=== PATIENT | female | born 1975 | race Native Hawaiian/Other Pacific Islander ===

== ENCOUNTER 2017-09-15 06:35 | Emergency (ER) | payer BC ==
[~2017-09-15] VITALS: Ht 157.5 cm; Wt 62.1 kg
--- NOTE | 2017-09-15 06:59 | NUR ---
Patient discharged to home in stable conditon. Written and verbal after care instructions given. Patient verbalizes understanding of instructions.
== END 2017-09-15 07:00 | disposition home or self-care (01) ==
LOC: ER 06:47
DX: J40 Bronchitis, not specified as acute or chronic (principal)
CPT/HCPCS: A4663

== ENCOUNTER 2018-03-15 04:33 | Outpatient (CLI) | payer BC, OTHER ==
[2018-03-15 06:38] LABS: BASOPHILS # (AUTO) 0.1 K/uL (0.0-8.0); BASOPHILS % (AUTO) 1.2 % (0.0-2.0); EOSINOPHILS # (AUTO) 0.3 K/uL (0.0-0.7); EOSINOPHILS % (AUTO) 3.1 % (0.0-7.0); HEMOGLOBIN 12.6 g/dL (10.9-14.3); LYMPHOCYTES # (AUTO) 2.1 K/uL (20.0-40.0); LYMPHOCYTES % (AUTO) 22.4 % (20.5-51.5); MEAN CORPUSCULAR HEMOGLOBIN 28.9 uug (24.7-32.8); MEAN CORPUSCULAR HGB CONC 33 g/dL (32.3-35.6); MEAN CORPUSCULAR VOLUME 87.4 fL (75.5-95.3); MONOCYTES % (AUTO) 10.6 % (0.0-11.0); NEUTROPHILS # (AUTO) 5.8 K/uL (1.8-8.9); NEUTROPHILS % (AUTO) 62.7 % (38.5-71.5); PLATELET COUNT (AUTO) 333 K/uL (179-408); RED BLOOD CELL COUNT(AUTO) 4.35 MIL/uL (3.63-4.92); WHITE BLOOD COUNT (AUTO) 9.3 K/uL (3.8-11.8)
[2018-03-15 06:40] LABS: *BILIRUBIN,URIN NEGATIVE (NEGATIVE); *BLOOD, URINE Trace-intact (NEGATIVE); *CLARITY,URINE CLEAR (CLEAR); *COLOR,URINE YELLOW (YELLOW); *KETONES,URINE TRACE (NEGATIVE); *PROTEIN,URINE NEGATIVE (NEGATIVE); *UROBILINOGEN,URINE 0.2 E.U./dl (NORMAL); LEUKOCYTE ESTERASE ,URINE TRACE (NEGATIVE); NITRITE, URINE NEGATIVE (NEGATIVE); UGLUCOSE NEGATIVE (NEGATIVE)
[2018-03-15 06:51] LABS: BACTERIA,URINE NONE SEEN /HPF (NONE SEEN); SQUAMOUS EPITHELIAL CELL,UR MODERATE /HPF (NONE SEEN)
[2018-03-15 06:52] LABS: MUCUS,URINE FEW /LPF (0-FEW)
[2018-03-15 06:55] LABS: BILIRUBIN,TOTAL 0.4 mg/dL (0.2-1.0); CREATININE 0.6 mg/dL (0.6-1.3); POTASSIUM 3.3 mmol/L (3.5-5.1)
[2018-03-15 07:00] LABS: THYROID STIMULATING HORMONE 2.035 mIU/mL (0.358-3.740)
== END 2018-03-15 23:59 | disposition home or self-care (01) ==
LOC: LAB 04:33
PROVIDERS: ATTEND Legal Medicine
DX: Z00.00 Encounter for general adult medical examination without abnormal findings (principal)
CPT/HCPCS: 70030-TC; 83550; 84443; 85025

== ENCOUNTER 2018-11-01 09:42 | Emergency (ER) | payer BC, OTHER ==
[~2018-11-01] VITALS: Ht 157.5 cm; Wt 54.4 kg
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
--- NOTE | 2018-11-01 09:52 | NUR ---
BETTY LLOYD AT BEDSIDE FOR MSE.
[2018-11-01] MEDS ORDERED: IBUPROFEN 600 MG TABLET PO ONE (10:00)
--- NOTE | 2018-11-01 10:06 | NUR ---
Patient discharged to home in stable conditon. Written and verbal after care instructions given. Patient verbalizes understanding of instructions. ALL BELONGINGS W/ PT. PT SELF-AMBULATED W/O DIFFICULTY.
[2018-11-01 10:07] VITALS: BP 172/98
[2018-11-01] MEDS ORDERED: IBUPROFEN 600 MG TABLET ONE (10:08)
== END 2018-11-01 10:09 | disposition home or self-care (01) ==
LOC: ER 09:42
DX: S16.1XXA Strain of muscle, fascia and tendon at neck level, initial encounter (principal); S70.11XA Contusion of right thigh, initial encounter; S30.1XXA Contusion of abdominal wall, initial encounter; V43.52XA Car driver injured in collision with other type car in traffic accident, initial encounter; Y93.89 Activity, other specified; Y92.410 Unspecified street and highway as the place of occurrence of the external cause; Y99.8 Other external cause status
CPT/HCPCS: A4663

== ENCOUNTER 2019-01-11 07:47 | Emergency (ER) | payer BC, OTHER ==
[~2019-01-11] VITALS: Ht 157.5 cm; Wt 60.3 kg
--- NOTE | 2019-01-11 08:02 | NUR ---
Dr Conner is at bedside doing his MSE.
--- NOTE | 2019-01-11 08:53 | NUR ---
Patient discharged to home in stable conditon. Written and verbal after care instructions given to patient. Patient verbalizes understanding of instructions.
== END 2019-01-11 09:00 | disposition home or self-care (01) ==
LOC: ER 07:47
DX: J40 Bronchitis, not specified as acute or chronic (principal)
CPT/HCPCS: 71045; A4663

== ENCOUNTER 2019-04-11 07:31 | Outpatient (CLI) | payer BC, OTHER ==
[2019-04-11 08:59] LABS: BASOPHILS # (AUTO) 0.1 K/uL (0.0-8.0); EOSINOPHILS # (AUTO) 0.3 K/uL (0.0-0.7); EOSINOPHILS % (AUTO) 3.8 % (0.0-7.0); HEMATOCRIT 36.7 % (31.2-41.9); HEMOGLOBIN 11.9 g/dL (10.9-14.3); LYMPHOCYTES # (AUTO) 2.2 K/uL (20.0-40.0); LYMPHOCYTES % (AUTO) 28.9 % (20.5-51.5); MEAN CORPUSCULAR HEMOGLOBIN 27.1 uug (24.7-32.8); MEAN CORPUSCULAR HGB CONC 32 g/dL (32.3-35.6); MEAN CORPUSCULAR VOLUME 83.7 fL (75.5-95.3); MONOCYTES # (AUTO) 0.7 K/uL (2.0-10.0); MONOCYTES % (AUTO) 9.6 % (0.0-11.0); NEUTROPHILS # (AUTO) 4.1 K/uL (1.8-8.9); NEUTROPHILS % (AUTO) 55.7 % (38.5-71.5); PLATELET COUNT (AUTO) 448 K/uL (179-408); RED BLOOD CELL COUNT(AUTO) 4.39 MIL/uL (3.63-4.92); WHITE BLOOD COUNT (AUTO) 7.4 K/uL (3.8-11.8)
[2019-04-11 09:01] LABS: CARBON DIOXIDE 28 mmol/L (21-32); CHLORIDE 99 mmol/L (98-107); CREATININE 0.6 mg/dL (0.6-1.3); GLUCOSE 97 mg/dL (74-106); POTASSIUM 3.5 mmol/L (3.5-5.1); UREA NITROGEN, BLOOD 10 mg/dL (7-18)
[2019-04-11 09:10] LABS: *BILIRUBIN,URIN NEGATIVE (NEGATIVE); *BLOOD, URINE NEGATIVE (NEGATIVE); *CLARITY,URINE CLOUDY (CLEAR); *COLOR,URINE YELLOW (YELLOW); *KETONES,URINE NEGATIVE (NEGATIVE); *UROBILINOGEN,URINE 0.2 E.U./dl (NORMAL); LEUKOCYTE ESTERASE ,URINE 1+ (NEGATIVE); NITRITE, URINE NEGATIVE (NEGATIVE); UGLUCOSE NEGATIVE (NEGATIVE)
[2019-04-11 09:43] LABS: BACTERIA,URINE FEW /HPF (NONE SEEN); RBC,URINE 0-3 /HPF (0-3); SQUAMOUS EPITHELIAL CELL,UR FEW /HPF (NONE SEEN); WBC,URINE 0-3 /HPF (0-3)
== END 2019-04-11 23:59 | disposition home or self-care (01) ==
LOC: LAB 07:31
PROVIDERS: ATTEND Obstetrics & Gynecology
DX: Z01.818 Encounter for other preprocedural examination (principal)
CPT/HCPCS: 36415; 85025; 85730; 86900; 86901; 87086

== ENCOUNTER 2019-08-21 07:30 | Outpatient (CLI) | payer BC, OTHER ==
[2019-08-23 02:06] LABS: NEISSERIA GONORRHOEAE NAA Negative (Negative)
== END 2019-08-21 23:59 | disposition home or self-care (01) ==
LOC: LAB 07:30
PROVIDERS: ATTEND Legal Medicine
DX: Z11.3 Encounter for screening for infections with a predominantly sexual mode of transmission (principal)
CPT/HCPCS: 87491; 87591

== ENCOUNTER 2020-08-26 06:00 | Emergency (ER) | payer BC, OTHER ==
[~2020-08-26] VITALS: Ht 157.5 cm; Wt 59.0 kg
[2020-08-26] MEDS ORDERED: BENZ-13 PO (06:23)
[2020-08-26] MEDS ORDERED: AZIT500T2 PO (06:23)
[2020-08-26 06:27] VITALS: BP 118/78
--- NOTE | 2020-08-26 06:27 | NUR ---
Patient discharged to home in stable condition. Written and verbal after care instructions given. Patient verbalizes understanding of instructions. Stressed follow up or return to ER for worsening s/s.
== END 2020-08-26 06:28 | disposition home or self-care (01) ==
LOC: ER 06:03
DX: J20.9 Acute bronchitis, unspecified (principal); Z86.16 Personal history of COVID-19
CPT/HCPCS: A4663

== ENCOUNTER 2020-11-11 07:32 | Outpatient (CLI) | payer BC, OTHER ==
[~2020-11-11 07:32] MED LIST: AZIT500T2 PO; BENZ-13 PO
[2020-11-11 08:03] LABS: *BILIRUBIN,URIN NEGATIVE (NEGATIVE); *BLOOD, URINE NEGATIVE (NEGATIVE); *CLARITY,URINE Other (CLEAR); *COLOR,URINE YELLOW (YELLOW); *KETONES,URINE NEGATIVE (NEGATIVE); *UROBILINOGEN,URINE 0.2 E.U./dl (NORMAL); LEUKOCYTE ESTERASE ,URINE NEGATIVE (NEGATIVE); NITRITE, URINE NEGATIVE (NEGATIVE); UGLUCOSE NEGATIVE (NEGATIVE)
[2020-11-11 08:04] LABS: BASOPHILS # (AUTO) 0.2 K/uL (0.0-8.0); BASOPHILS % (AUTO) 1.1 % (0.0-2.0); CARBON DIOXIDE 24 mmol/L (21-32); CHLORIDE 102 mmol/L (98-107); CREATININE 0.6 mg/dL (0.6-1.3); EOSINOPHILS # (AUTO) 0.5 K/uL (0.0-0.7); EOSINOPHILS % (AUTO) 3.7 % (0.0-7.0); GLUCOSE 94 mg/dL (74-106); HEMATOCRIT 29.5 % (31.2-41.9); HEMOGLOBIN 9.5 g/dL (10.9-14.3); LYMPHOCYTES # (AUTO) 2.2 K/uL (20.0-40.0); LYMPHOCYTES % (AUTO) 15.7 % (20.5-51.5); MEAN CORPUSCULAR HEMOGLOBIN 22.7 uug (24.7-32.8); MEAN CORPUSCULAR HGB CONC 32 g/dL (32.3-35.6); MEAN CORPUSCULAR VOLUME 70.8 fL (75.5-95.3); MONOCYTES # (AUTO) 0.8 K/uL (2.0-10.0); MONOCYTES % (AUTO) 5.7 % (0.0-11.0); NEUTROPHILS # (AUTO) 10.4 K/uL (1.8-8.9); NEUTROPHILS % (AUTO) 73.8 % (38.5-71.5); PLATELET COUNT (AUTO) 489 K/uL (179-408); POTASSIUM 3.5 mmol/L (3.5-5.1); RED BLOOD CELL COUNT(AUTO) 4.16 MIL/uL (3.63-4.92); UREA NITROGEN, BLOOD 15 mg/dL (7-18); WHITE BLOOD COUNT (AUTO) 14.1 K/uL (3.8-11.8)
[2020-11-11 14:04] LABS: BACTERIA,URINE MANY /HPF (NONE SEEN); RBC,URINE NONE SEEN /HPF (0-3)
[2020-11-11 14:06] LABS: URINE AMORPHOUS URATE MANY /HPF
[2020-11-11 15:45] LABS: EOSINOPHILS % (MANUAL) 4 % (0-8); LYMPHOCYTES % (MANUAL) 15 % (20-40); MONOCYTES % (MANUAL) 6 % (2-10); NEUTROPHILS % (MANUAL) 75 % (42-75)
== END 2020-11-11 23:59 | disposition home or self-care (01) ==
LOC: LAB 07:32
PROVIDERS: ATTEND Obstetrics & Gynecology
DX: Z01.818 Encounter for other preprocedural examination (principal)
CPT/HCPCS: 36415; 70030-TC; 85025; 85730; 87086

== ENCOUNTER 2020-11-17 06:29 | Outpatient (CLI) | payer BC, OTHER ==
[2020-11-18] MEDS ORDERED: CEFAZOLIN 50 ML IV ONE (06:56)
== END 2020-11-17 23:59 | disposition home or self-care (01) ==
LOC: LAB 06:29
PROVIDERS: ATTEND Obstetrics & Gynecology
DX: Z01.812 Encounter for preprocedural laboratory examination (principal); Z20.822 Contact with and (suspected) exposure to COVID-19
CPT/HCPCS: J0690

== ENCOUNTER 2020-11-18 05:56 | Inpatient (IN) | payer BC, OTHER ==
[~2020-11-18] VITALS: Ht 157.5 cm; Wt 61.7 kg
[2020-11-18 06:38] LABS: *URINE HCG, QUAL NEGATIVE (NEGATIVE)
[2020-11-18] MEDS ORDERED: FENTANYL CITRATE 100 MCG/2 ML AMPUL ONE ×2 (07:37→10:44)
[2020-11-18] MEDS ORDERED: MIDAZOLAM HCL 2 MG/2 ML VIAL ONE (07:38)
[2020-11-18] MEDS ORDERED: ROCURONIUM BROMIDE 50 MG/5 ML VIAL ONE (07:38)
[2020-11-18] MEDS ORDERED: LIDOCAINE 5% OINT 35.44 GM TUBE ONE (08:34)
[2020-11-18] MEDS ORDERED: BUPIVACAINE/EPI PF 0.5% 10 ML VIAL ONE (08:39)
[2020-11-18] MEDS ORDERED: ONDANSETRON 4 MG/2 ML VIAL ONE ×3 (09:56→17:52)
[2020-11-18] MEDS ORDERED: HYDROMORPHONE 1 MG/1 ML DISP.SYRIN ONE (09:57)
[2020-11-18] MEDS ORDERED: LIDOCAINE 5% OINT 35.44 GM TUBE TP PRN (11:15)
--- NOTE | 2020-11-18 11:30 | NUR ---
ADMITTED FROM RECOVERY ROOM A 45 YO FEMALE SP WENDIE, DELMY AND BILATERAL LABIAL REPAIR UNDER DR SALAZAR AWAKE ALERT AND VERBALLY RESPONSIVE BUT STILL FEELING DIZZY AND NAUSEATED. POST-OP VS TAKEN. CONTINUE WITH OBSERVATION
[2020-11-18 11:45] VITALS: BP 142/79
[2020-11-18 12:00] VITALS: BP 151/88
[2020-11-18] MEDS: HYDROMORPHONE 1 MG/1 ML DISP.SYRIN IV PRN ×5 (12:07→22:40)
[2020-11-18 12:30] VITALS: BP 152/87
[2020-11-18] MEDS: IV LACTATED RINGERS SOLUTION 1,000 ML IV PRN ×2 (13:51→23:32)
[2020-11-18] MEDS ORDERED: HYDROMORPHONE 2 MG/1 ML DISP.SYRIN IV PRN (14:15)
[2020-11-18] MEDS ORDERED: PROCHLORPERAZINE EDISYLATE 10 MG/2 ML VIAL IV PRN (14:15)
[2020-11-18] MEDS: METOCLOPRAMIDE HCL 10 MG/2 ML VIAL IV PRN ×2 (14:20→20:50)
[2020-11-18] MEDS: ONDANSETRON INJ 8 MG in IV NORMAL SALINE 50 ML IV PRN (18:23)
--- NOTE | 2020-11-18 18:29 | NUR ---
CONTINUE WITH PAIN MANAGEMENT FOR POST-OP WENDIE. STILL WITH ON AND OF N/V MEDICATED WITH PRN MEDS WITH TEMPORARY RELIEF.
[2020-11-18 20:22] VITALS: BP 131/78
--- NOTE | 2020-11-18 22:10 | NUR ---
Patient in bed alert x4 vomited x2 .Reglan IVP given. Iv on left FA patent and intact with IVF running well.F/ c in place draining well with clear yellow output. Call light with in reach. Will continue to monitor.
[2020-11-19] MEDS: ONDANSETRON INJ 8 MG in IV NORMAL SALINE 50 ML IV PRN ×3 (00:01→12:58)
[2020-11-19] MEDS: METOCLOPRAMIDE HCL 10 MG/2 ML VIAL IV PRN ×2 (03:20→20:21)
[2020-11-19] MEDS: HYDROMORPHONE 1 MG/1 ML DISP.SYRIN IV PRN ×5 (03:33→22:06)
[2020-11-19 04:45] VITALS: BP 132/72
[2020-11-19 06:32] LABS: HEMATOCRIT 26.5 % (31.2-41.9); MEAN CORPUSCULAR HEMOGLOBIN 22.6 uug (24.7-32.8); MEAN CORPUSCULAR VOLUME 71.3 fL (75.5-95.3); PLATELET COUNT (AUTO) 393 K/uL (179-408)
[2020-11-19] MEDS: IV LACTATED RINGERS SOLUTION 1,000 ML IV PRN (08:14)
[2020-11-19] MEDS ORDERED: VECURONIUM BROMIDE 10 MG VIAL IV ONE (09:28)
[2020-11-19] MEDS ORDERED: DEXAMETHASONE SOD PHOSPHATE 4 MG INJ IV ONE (09:28)
[2020-11-19] MEDS ORDERED: NEOSTIGMINE METHYLSULFATE 10 MG/10 ML VIAL IM ONE (09:28)
[2020-11-19] MEDS ORDERED: CEFAZOLIN 1 G VIAL IM ONE (09:28)
[2020-11-19] MEDS ORDERED: GLYCOPYRROLATE 0.2 MG/ML VIAL IJ ONE (09:28)
[2020-11-19] MEDS ORDERED: KETOROLAC TROMETHAMINE 30 MG INJ IM ONE (09:28)
[2020-11-19] MEDS ORDERED: ONDANSETRON 4 MG/2 ML VIAL IV ONE (09:28)
[2020-11-19] MEDS ORDERED: SEVOFLURANE 250 ML BOTTLE IH ONE (09:28)
[2020-11-19] MEDS ORDERED: LIDOCAINE-MPF 2% 5 ML VIAL IJ ONE (09:28)
[2020-11-19] MEDS ORDERED: METOCLOPRAMIDE HCL 10 MG/2 ML VIAL IV ONE (09:28)
[2020-11-19] MEDS ORDERED: PROPOFOL 200 MG/20 ML BOTTLE IV ONE (09:28)
--- NOTE | 2020-11-19 10:15 | NUR ---
Received report from JAZMYN Rosales.
--- NOTE | 2020-11-19 12:03 | NUR ---
Spoke to Dr. Pro received orders maria del rosario DSS 100mg BID, relayed wbc 17 and said she'll see patient this afternoon. ORder noted and carried out.
[2020-11-19] MEDS: DOCUSATE SODIUM 100 MG CAPSULE PO SCH ×2 (12:26→21:51)
[2020-11-19 12:59] LABS: LYMPHOCYTES % (MANUAL) 5 % (20-40); MONOCYTES % (MANUAL) 12 % (2-10); NEUTROPHILS % (MANUAL) 83 % (42-75)
[2020-11-19 13:00] VITALS: BP 98/63
--- NOTE | 2020-11-19 15:45 | NUR ---
Removed argueta catheter. Patient tolerated procedure. Denies pain.
[2020-11-19 16:00] VITALS: BP 140/78
--- NOTE | 2020-11-19 16:51 | NUR ---
Left voicemail for Dr. Pro re Roxicodone dose. Waiting for call back.
--- NOTE | 2020-11-19 17:10 | NUR ---
Dr. Pro called back with new orders roxicodone 5mg q4hr prn and decrease Zofran to 4mg prn, noted and carried out.
[2020-11-19] MEDS ORDERED: ONDANSETRON 4 MG/2 ML VIAL IV PRN (17:15)
--- NOTE | 2020-11-19 18:51 | NUR ---
Patient resting in no acute distress. Voided after argueta catheter was removed. Ambulated today. Pain relived by medication. IV intact. Patient is comfortable. Needs attended.
--- NOTE | 2020-11-19 19:26 | NUR ---
Patient prefers to keep Dilaudid for now just in case she doesn't tolerate the oxycodone. Pharmacy aware. Endorsed.
--- NOTE | 2020-11-19 19:30 | NUR ---
RECEIVED PT AWAKE, ALERT AND ORIENTEDX4. VISITOR AT BEDSIDE. PT IN NO ACUTE DISTRESS. IV INTACT. SAFETY AND COMFORT PROVIDED. WILL CONTINUE TO MONITOR.
[2020-11-19 20:00] VITALS: BP 155/92
[2020-11-19] MEDS: OXYCODONE HCL 5 MG TABLET PO PRN (20:21)
[2020-11-19] MEDS ORDERED: DOCUSATE SODIUM 100 MG CAPSULE PO SCH (21:00)
[2020-11-20] MEDS: HYDROMORPHONE 1 MG/1 ML DISP.SYRIN IV PRN (03:55)
[2020-11-20 04:00] VITALS: BP 132/70
--- NOTE | 2020-11-20 06:33 | NUR ---
PT SLEPT INTERMITTENTLY. PT IN NO ACUTE DISTRESS. IV INTACT. PRESCRIBED MEDICATION GIVEN AND PT TOLERATED IT WELL.PT WAS GIVEN OXYIR PRN FOR 7/10 PAIN SCALE OF HER LOWER ABDOMEN AT 2020H AND AT REGLAN 10MG PRN GIVEN FOR NAUSEA . AT 2205H AND 354H DIALUDID 1MG PRN GIVEN FOR PAIN. PT TOLERATED IT WELL. SAFETY AND COMFORT PROVIDED. ALL NEEDS ARE MET.WILL ENDORSE TO INCOMING NURSE FOR CONTINUITY OF CARE.
[2020-11-20] MEDS: OXYCODONE HCL 5 MG TABLET PO PRN ×3 (06:40→19:11)
--- NOTE | 2020-11-20 06:41 | NUR ---
AT 0640H OXYIR PRN GIVEN FOR PAIN. PT TOLERATED IT WELL. WILL ENDORSE TO INCOMING NURSE.
[2020-11-20] MEDS: DOCUSATE SODIUM 100 MG CAPSULE PO SCH ×2 (08:22→22:07)
[2020-11-20 10:47] VITALS: BP 130/70
[2020-11-20] MEDS ORDERED: ACETAMINOPHEN 325 MG TABLET PO ONE (12:30)
[2020-11-20 15:07] VITALS: BP 132/77
[2020-11-20] MEDS ORDERED: HYDROMORPHONE HCL 2 MG TABLET PO PRN (19:00)
--- NOTE | 2020-11-20 19:00 | NUR ---
Spoke to Dr. Pro, update given to MD and per MD may remove surgical dressing, keep surgical incision site clean, dry and open to air. Dr. Pro also ordered Tylenol ES 500mg PO Q 4hrs PRN, discontinue IV Dilaudid and shift to Dilaudid 1mg PO Q4hrs.
[2020-11-20] MEDS: ACETAMINOPHEN ES 500 MG TABLET PO PRN (19:11)
--- NOTE | 2020-11-20 20:00 | NUR ---
AWAKE ALERT IN NO DISTRESS, NO COMPLAINTS MADE.RESTING COMFORTABLY
[2020-11-20 21:37] VITALS: BP 137/84
--- NOTE | 2020-11-21 05:12 | NUR ---
slept at intervals.vital sighs stable.
[2020-11-21 06:32] VITALS: BP 111/75
[2020-11-21] MEDS: DOCUSATE SODIUM 100 MG CAPSULE PO SCH (09:10)
[2020-11-21] MEDS: OXYCODONE HCL 5 MG TABLET PO PRN (11:25)
[2020-11-21] MEDS: ACETAMINOPHEN ES 500 MG TABLET PO PRN (11:25)
[2020-11-21 12:00] VITALS: BP 117/72
--- NOTE | 2020-11-21 12:00 | NUR ---
AMBULATING ONIEL. ANXIOUS TO BE DISCHARGED. MED. PO FOR PAIN WITH GOOD EFFECT AFTER 45 MINS.
[2020-11-21] MEDS ORDERED: ONDA4TAB11 PO (13:21)
[2020-11-21] MEDS ORDERED: OXYC5TAB3 PO (13:21)
[2020-11-21] MEDS ORDERED: CEPH500C2 PO (13:21)
--- NOTE | 2020-11-21 15:00 | NUR ---
HEP. MAHESH CARABALLO. ANGIOCATH REMOVED INTACT. PREPARED FOR DISCHARGE. Zach GARCIA SUPERVISOR STAVE FINISHING SPOKE WITH PATIENT.
--- NOTE | 2020-11-21 15:35 | NUR ---
DISCHARGED VIA W/C, ACCOMPANIED BY NURSES TO MOTHER IN AUTO. NO DISTRESS NOTED.
== END 2020-11-21 15:35 | disposition home or self-care (01) | DRG 742 ==
LOC: DS 05:56 → MEDSURG3 11:56
PROVIDERS: ADMIT Hospitalist; ATTEND Hospitalist
PROC: 0UT90ZZ Resection of Uterus, Open Approach (ICD-10-PCS; principal; 2020-11-18)
PROC: 0UT20ZZ Resection of Bilateral Ovaries, Open Approach (ICD-10-PCS; 2020-11-18)
PROC: 0HB9XZZ Excision of Perineum Skin, External Approach (ICD-10-PCS; 2020-11-18)
DX: R87.613 High grade squamous intraepithelial lesion on cytologic smear of cervix (HGSIL) (principal); D62 Acute posthemorrhagic anemia; D72.829 Elevated white blood cell count, unspecified; Z98.51 Tubal ligation status
CPT/HCPCS: 36415; 70030-TC; 84703; 85025; 86850; 86900; 86901; A4649; A4663; A9150; G0378; J0690; J1100; J1170; J1885; J2250; J2405; J2765; J3010; J3490; J7120

== ENCOUNTER 2021-06-23 09:00 | Emergency (ER) | payer BC, OTHER ==
[~2021-06-23] VITALS: Ht 157.5 cm; Wt 63.5 kg
[~2021-06-23 09:00] MED LIST changes: +CEPH500C2 PO; +ONDA4TAB11 PO
[2021-06-23] MEDS ORDERED: PANTOPRAZOLE SODIUM 40 MG VIAL IV ONE (09:15)
[2021-06-23] MEDS ORDERED: IV NORMAL SALINE 1000 ML BAG IV ONE (09:15)
[2021-06-23] MEDS ORDERED: LIDOCAINE VISCUS 2% 15 ML UDC MM ONE (09:15)
[2021-06-23] MEDS ORDERED: MAG HYDROX/AL HYDROX/SIMETH 30 ML LIQUID UDC PO ONE (09:15)
[2021-06-23] MEDS ORDERED: ONDANSETRON 4 MG/2 ML VIAL IV ONE (09:15)
[2021-06-23 09:27] LABS: HEMATOCRIT 40.8 % (31.2-41.9); MEAN CORPUSCULAR HEMOGLOBIN 28.6 uug (24.7-32.8); MEAN CORPUSCULAR VOLUME 84.7 fL (75.5-95.3); PLATELET COUNT (AUTO) 382 K/uL (179-408)
[2021-06-23] MEDS ORDERED: KETOROLAC TROMETHAMINE 15 MG INJ IVP ONE (09:30)
[2021-06-23 09:37] LABS: CREATININE 0.7 mg/dL (0.6-1.3)
[2021-06-23 09:44] LABS: BILIRUBIN,DIRECT 0.1 mg/dL (0.0-0.2); BILIRUBIN,TOTAL 0.4 mg/dL (0.2-1.0); TOTAL PROTEIN, SERUM 8.6 g/dL (6.4-8.2)
[2021-06-23] MEDS ORDERED: KETOROLAC TROMETHAMINE 15 MG INJ ONE (09:54)
[2021-06-23] MEDS ORDERED: ONDANSETRON 4 MG/2 ML VIAL ONE (09:54)
[2021-06-23] MEDS ORDERED: PANTOPRAZOLE SODIUM 40 MG VIAL ONE (09:54)
[2021-06-23] MEDS ORDERED: MAG HYDROX/AL HYDROX/SIMETH 30 ML LIQUID UDC ONE (09:55)
--- NOTE | 2021-06-23 10:02 | NUR ---
PT IS IN ROOM #2B. DR HERNANDEZ EVALUATED THE PT.
[2021-06-23 10:11] LABS: *URINE HCG, QUAL NEG (NEGATIVE)
[2021-06-23] MEDS ORDERED: ONDA4TAB5 PO (10:53)
[2021-06-23] MEDS ORDERED: IBUP-1955 PO (10:53)
[2021-06-23] MEDS ORDERED: AMOX-430 PO (10:53)
[2021-06-23] MEDS ORDERED: AMOXICILLIN-CLAVUL 875-125MG TABLET PO ONE (11:00)
[2021-06-23] MEDS ORDERED: AMOXICILLIN-CLAVUL 875-125MG TABLET ONE (11:09)
--- NOTE | 2021-06-23 11:40 | NUR ---
PT WAS D/C'D TO HOME. D/C INSTRUCTIONS GIVEN TO THE PT BY DR HERNANDEZ.
[2021-06-23 11:42] VITALS: BP 127/69
== END 2021-06-23 12:09 | disposition home or self-care (01) ==
LOC: ER 09:00
DX: K52.9 Noninfective gastroenteritis and colitis, unspecified (principal); E03.0 Congenital hypothyroidism with diffuse goiter; K76.0 Fatty (change of) liver, not elsewhere classified; R91.1 Solitary pulmonary nodule; Z90.710 Acquired absence of both cervix and uterus; Z79.899 Other long term (current) drug therapy; Z79.2 Long term (current) use of antibiotics; Z79.1 Long term (current) use of non-steroidal anti-inflammatories (NSAID)
CPT/HCPCS: 36415; 74176; 76705; 80048; 80076; 83690; 84703; 85025; 93005; 96361; 96374; 96375; 99285; C9113; J1885; J2405; A4663; J7030

== ENCOUNTER 2021-09-04 06:21 | Outpatient (CLI) | payer BC, OTHER ==
[~2021-09-04 06:21] MED LIST changes: +AMOX-430 PO; +IBUP-1955 PO; +ONDA4TAB5 PO
== END 2021-09-04 23:59 | disposition home or self-care (01) ==
LOC: RAD 06:21
PROVIDERS: ATTEND Legal Medicine
DX: R91.8 Other nonspecific abnormal finding of lung field (principal); K76.0 Fatty (change of) liver, not elsewhere classified; M47.814 Spondylosis without myelopathy or radiculopathy, thoracic region; M19.011 Primary osteoarthritis, right shoulder; M19.012 Primary osteoarthritis, left shoulder
CPT/HCPCS: 71250

== ENCOUNTER 2022-08-12 08:04 | Outpatient (CLI) | payer BC, OTHER ==
[2022-08-12 08:45] LABS: MEAN CORPUSCULAR HEMOGLOBIN 28.2 uug (24.7-32.8); MEAN CORPUSCULAR VOLUME 85.9 fL (75.5-95.3); PLATELET COUNT (AUTO) 376 K/uL (179-408)
[2022-08-12 08:46] LABS: *BILIRUBIN,URIN NEGATIVE (NEGATIVE); *BLOOD, URINE 1+ (NEGATIVE); *COLOR,URINE YELLOW (YELLOW); *KETONES,URINE NEGATIVE (NEGATIVE); *UROBILINOGEN,URINE 0.2 E.U./dl (NORMAL); LEUKOCYTE ESTERASE ,URINE NEGATIVE (NEGATIVE); NITRITE, URINE NEGATIVE (NEGATIVE); PH,URINE 5.5 (5.0-8.0); UGLUCOSE NEGATIVE (NEGATIVE)
[2022-08-12 09:09] LABS: THYROID STIMULATING HORMONE 3.709 mIU/mL (0.358-3.740)
[2022-08-12 09:47] LABS: BILIRUBIN,TOTAL 0.3 mg/dL (0.2-1.0); CREATININE 0.6 mg/dL (0.6-1.3); POTASSIUM 3.4 mmol/L (3.5-5.1); TOTAL PROTEIN, SERUM 8.3 g/dL (6.4-8.2)
[2022-08-12 10:26] LABS: *CLARITY,URINE EH036675 (CLEAR)
[2022-08-12 10:27] LABS: BACTERIA,URINE NONE SEEN /HPF (NONE SEEN); RBC,URINE 0-3 /HPF (0-3); SQUAMOUS EPITHELIAL CELL,UR FEW /HPF (NONE SEEN); WBC,URINE 0-3 /HPF (0-3)
== END 2022-08-12 23:59 | disposition home or self-care (01) ==
LOC: LAB 08:04 → RAD 23:59
PROVIDERS: ATTEND Internal Medicine
DX: Z00.00 Encounter for general adult medical examination without abnormal findings (principal); R53.1 Weakness; E03.9 Hypothyroidism, unspecified; E78.00 Pure hypercholesterolemia, unspecified; E11.9 Type 2 diabetes mellitus without complications; E55.9 Vitamin D deficiency, unspecified; D64.9 Anemia, unspecified; R91.1 Solitary pulmonary nodule
CPT/HCPCS: 36415; 71250; 82746; 83550; 84443; 84550; 85025

== ENCOUNTER 2022-11-10 07:29 | Emergency (ER) | payer BC, OTHER ==
[~2022-11-10] VITALS: Ht 157.5 cm; Wt 63.5 kg
[2022-11-10] MEDS ORDERED: AMOX-430 PO (07:44)
[2022-11-11] MEDS ORDERED: PERMETHRIN 5% CREAM 60 GM TUBE TP ONE (21:39)
== END 2022-11-10 08:06 | disposition home or self-care (01) ==
LOC: ER 07:29
DX: H66.92 Otitis media, unspecified, left ear (principal); Z90.710 Acquired absence of both cervix and uterus; Z79.1 Long term (current) use of non-steroidal anti-inflammatories (NSAID); Z79.2 Long term (current) use of antibiotics; Z79.899 Other long term (current) drug therapy
CPT/HCPCS: A4663

== ENCOUNTER 2023-05-16 21:27 | Emergency (ER) | payer OTHER ==
[~2023-05-16] VITALS: Ht 157.5 cm; Wt 55.8 kg
[2023-05-16] MEDS ORDERED: HEPATITIS B VIRUS VACCINE-PF 20 MCG/ML VIAL IM ONE (21:45)
[2023-05-16] MEDS ORDERED: HEPATITIS B IMMUNE GLOBULIN 5 ML VIAL IM ONE (21:45)
[2023-05-16] MEDS ORDERED: TDAP DIPH,PERTUSS,TET VAC/PF 0.5 ML DISP.SYRIN IM ONE ×2 (21:45→22:02)
[2023-05-16] MEDS ORDERED: AMOXICILLIN-CLAVUL 875-125MG TABLET PO ONE (21:45)
[2023-05-16] MEDS ORDERED: AMOX-430 PO (21:48)
[2023-05-16] MEDS ORDERED: AMOXICILLIN-CLAVUL 875-125MG TABLET ONE (22:02)
[2023-05-16 23:35] LABS: HIV-1 p24 ANTIGEN NON REACTIVE (NONREACTIVE); HIV-1/2 ANTIBODY NON REACTIVE (NONREACTIVE)
[2023-05-17] MEDS ORDERED: MISCELLANEOUS MED XX ONE (01:00)
[2023-05-17 01:03] VITALS: BP 128/78; TEMP 97.8; O2SAT 99
[2023-05-18 08:07] LABS: HEPATITIS B CORE AB, TOTAL Negative (Negative); HEPATITIS B SURFACE AB, QUAL Reactive (.); HEPATITIS C VIRUS ANTIBODY Non Reactive (Non Reactive)
== END 2023-05-17 00:45 | disposition home or self-care (01) ==
LOC: ER 22:19
DX: S61.211A Laceration without foreign body of left index finger without damage to nail, initial encounter (principal); Z90.710 Acquired absence of both cervix and uterus; Z79.1 Long term (current) use of non-steroidal anti-inflammatories (NSAID); Z79.2 Long term (current) use of antibiotics; Z79.899 Other long term (current) drug therapy; W50.3XXA Accidental bite by another person, initial encounter; Y93.89 Activity, other specified; Y92.89 Other specified places as the place of occurrence of the external cause; Y99.8 Other external cause status
CPT/HCPCS: 36415; 86704; 86706; 86803; 87806; 90371; 90715; 90746; A4606; A4663

== ENCOUNTER 2023-06-10 03:20 | Emergency (ER) | payer BC, OTHER ==
[~2023-06-10] VITALS: Ht 160 cm; Wt 54.9 kg
[2023-06-10 03:20] VITALS: O2SAT 97
[2023-06-10] MEDS ORDERED: IV NORMAL SALINE 1000 ML BAG IV ONE (04:00)
[2023-06-10] MEDS ORDERED: DEXAMETHASONE SOD PHOSPHATE 4 MG INJ IV ONE (04:00)
[2023-06-10 04:26] LABS: BASOPHILS # (AUTO) 0.1 K/UL (0.0-0.2); BASOPHILS % (AUTO) 1.3 % (0.0-2.0); EOSINOPHILS # (AUTO) 0.2 K/uL (0.0-0.7); HEMATOCRIT 35.9 % (31.2-41.9); HEMOGLOBIN 12.2 g/dL (10.9-14.3); LYMPHOCYTES # (AUTO) 0.5 K/uL (0.8-4.8); LYMPHOCYTES % (AUTO) 5.2 % (20.5-51.5); MEAN CORPUSCULAR HEMOGLOBIN 28.7 uug (24.7-32.8); MEAN CORPUSCULAR HGB CONC 34 g/dL (32.3-35.6); MEAN CORPUSCULAR VOLUME 84.6 fL (75.5-95.3); MONOCYTES # (AUTO) 1.2 K/uL (0.1-1.30); MONOCYTES % (AUTO) 12.9 % (0.0-11.0); NEUTROPHILS # (AUTO) 7.2 K/uL (1.8-8.9); NEUTROPHILS % (AUTO) 78.6 % (38.5-71.5); PLATELET COUNT (AUTO) 327 K/uL (179-408); RED BLOOD CELL COUNT(AUTO) 4.25 MIL/uL (3.63-4.92); RED CELL DISTRIBUTION WIDTH 12.9 % (12.3-17.7); WHITE BLOOD COUNT (AUTO) 9.1 K/uL (3.8-11.8)
[2023-06-10 04:37] LABS: *BILIRUBIN,URIN NEGATIVE (NEGATIVE); *CLARITY,URINE CLEAR (CLEAR); *COLOR,URINE YELLOW (YELLOW); *KETONES,URINE NEGATIVE (NEGATIVE); *PROTEIN,URINE NEGATIVE (NEGATIVE); *UROBILINOGEN,URINE 0.2 E.U./dl (NORMAL); LEUKOCYTE ESTERASE ,URINE NEGATIVE (NEGATIVE); NITRITE, URINE NEGATIVE (NEGATIVE); UGLUCOSE NEGATIVE (NEGATIVE)
[2023-06-10 04:40] LABS: CALCIUM 8.8 mg/dL (8.5-10.1); CARBON DIOXIDE 25 mmol/L (21-32); CHLORIDE 102 mmol/L (98-107); CREATININE 0.7 mg/dL (0.6-1.3); GLUCOSE 124 mg/dL (74-106); POTASSIUM 3.8 mmol/L (3.5-5.1); SODIUM SERUM 140 mmol/L (136-145); UREA NITROGEN, BLOOD 10 mg/dL (7-18)
[2023-06-10] MEDS ORDERED: DEXAMETHASONE SOD PHOSPHATE 10 MG INJ ONE (04:45)
[2023-06-10 04:53] LABS: ALANINE AMINOTRANSFERASE 33 U/L (14-59); ALBUMIN 3.9 g/dL (3.4-5.0); ALKALINE PHOSPHATASE 71 U/L (50-136); ASPARTATE AMINOTRANSFERASE 25 U/L (15-37); BILIRUBIN,DIRECT 0.1 mg/dL (0.0-0.2); BILIRUBIN,TOTAL 0.2 mg/dL (0.2-1.0); NT-PRO BNP 62 pg/mL (0-125); TOTAL PROTEIN, SERUM 7.4 g/dL (6.4-8.2)
[2023-06-10] MEDS ORDERED: LIDOCAINE VISCUS 2% 15 ML UDC MM ONE (05:00)
[2023-06-10] MEDS ORDERED: MAG HYDROX/AL HYDROX/SIMETH 30 ML LIQUID UDC PO ONE (05:00)
[2023-06-10 05:16] LABS: DIFFERENTIAL COMMENT 1
[2023-06-10] MEDS ORDERED: MAG HYDROX/AL HYDROX/SIMETH 30 ML LIQUID UDC ONE (05:16)
[2023-06-10] MEDS ORDERED: LIDOCAINE VISCUS 2% 15 ML UDC ONE (05:16)
[2023-06-10 05:32] LABS: *BLOOD, URINE TRACE (NEGATIVE)
[2023-06-10] MEDS ORDERED: PROM118S5 PO (06:23)
[2023-06-10] MEDS ORDERED: AZIT500T2 PO (06:23)
[2023-06-10] MEDS ORDERED: LIDOCAINE TOP (06:23)
[2023-06-10] MEDS ORDERED: AZITHROMYCIN IV 500 MG in IV DEXTROSE 5% 250 ML IV ONE (07:00)
[2023-06-10] MEDS ORDERED: AZITHROMYCIN 500MG/ D5W 250ML IVPB **ER PYXIS ONLY IV ONE (07:01)
[2023-06-10 10:18] LABS: BACTERIA,URINE FEW /HPF (NONE SEEN); SQUAMOUS EPITHELIAL CELL,UR MODERATE /HPF (NONE SEEN); WBC,URINE NONE SEEN /HPF (0-3)
== END 2023-06-10 07:50 | disposition home or self-care (01) ==
LOC: ER 03:22
DX: J20.9 Acute bronchitis, unspecified (principal); R07.89 Other chest pain; Z90.710 Acquired absence of both cervix and uterus; Z79.2 Long term (current) use of antibiotics; Z79.1 Long term (current) use of non-steroidal anti-inflammatories (NSAID); Z79.899 Other long term (current) drug therapy; Z20.822 Contact with and (suspected) exposure to COVID-19
CPT/HCPCS: 99285; 96365; 71045; 96361; 96375; 87426; 87804 ×2; 80076; 80048; 81001; 83880; 85025; 84145; 85730; 87040 ×2; 84484; 36415; 93005; 83605; 87086; J0456; J1100; J7040 ×2; A4606; A4663

== ENCOUNTER 2023-08-17 07:28 | Outpatient (CLI) | payer BC, OTHER ==
[~2023-08-17 07:28] MED LIST changes: +LIDOCAINE TOP; +PROM118S5 PO
[2023-08-17 08:01] LABS: BASOPHILS # (AUTO) 0.2 K/UL (0.0-0.2); BASOPHILS % (AUTO) 2.4 % (0.0-2.0); EOSINOPHILS # (AUTO) 0.5 K/uL (0.0-0.7); HEMATOCRIT 36.3 % (31.2-41.9); HEMOGLOBIN 12.5 g/dL (10.9-14.3); LYMPHOCYTES # (AUTO) 2.1 K/uL (0.8-4.8); MEAN CORPUSCULAR HEMOGLOBIN 29.3 uug (24.7-32.8); MEAN CORPUSCULAR HGB CONC 34 g/dL (32.3-35.6); MEAN CORPUSCULAR VOLUME 85.4 fL (75.5-95.3); MONOCYTES # (AUTO) 0.5 K/uL (0.1-1.30); MONOCYTES % (AUTO) 7.1 % (0.0-11.0); NEUTROPHILS % (AUTO) 54.5 % (38.5-71.5); PLATELET COUNT (AUTO) 396 K/uL (179-408); RED BLOOD CELL COUNT(AUTO) 4.25 MIL/uL (3.63-4.92); RED CELL DISTRIBUTION WIDTH 13.3 % (12.3-17.7); WHITE BLOOD COUNT (AUTO) 7.4 K/uL (3.8-11.8)
[2023-08-17 08:08] LABS: DIFFERENTIAL COMMENT 1
[2023-08-17 08:29] LABS: *BILIRUBIN,URIN NEGATIVE (NEGATIVE); *CLARITY,URINE CLEAR (CLEAR); *COLOR,URINE YELLOW (YELLOW); *KETONES,URINE NEGATIVE (NEGATIVE); *PROTEIN,URINE NEGATIVE (NEGATIVE); *UROBILINOGEN,URINE 0.2 E.U./dl (NORMAL); LEUKOCYTE ESTERASE ,URINE NEGATIVE (NEGATIVE); NITRITE, URINE NEGATIVE (NEGATIVE); PH,URINE 6.5 (5.0-8.0); UGLUCOSE NEGATIVE (NEGATIVE)
[2023-08-17 08:32] LABS: *BLOOD, URINE TRACE (NEGATIVE)
[2023-08-17 09:38] LABS: BACTERIA,URINE FEW /HPF (NONE SEEN); RBC,URINE 0-3 /HPF (0-3); SQUAMOUS EPITHELIAL CELL,UR MODERATE /HPF (NONE SEEN); WBC,URINE NONE SEEN /HPF (0-3)
[2023-08-17 09:39] LABS: ALBUMIN 4.2 g/dL (3.4-5.0); BILIRUBIN,TOTAL 0.4 mg/dL (0.2-1.0); CALCIUM 9.4 mg/dL (8.5-10.1); CREATININE 0.7 mg/dL (0.6-1.3); POTASSIUM 3.9 mmol/L (3.5-5.1); TOTAL PROTEIN, SERUM 8.1 g/dL (6.4-8.2)
[2023-08-17 10:08] LABS: THYROID STIMULATING HORMONE 1.953 mIU/mL (0.358-3.740)
[2023-08-18 07:06] LABS: PROLACTIN 6.1 ng/mL (4.8-33.4)
[2023-08-18 08:08] LABS: *TESTOSTERONE, SERUM 4 ng/dL (4-50); ESTRADIOL 6.2 pg/mL (.); FOLATE (FOLIC ACID), SERUM >20.0 ng/mL (>3.0); FOLLICLE STIMULATION HORMONE 47.6 mIU/mL (.); LUTEINIZING HORMONE 31.1 mIU/mL (.)
[2023-08-23 05:07] LABS: *VITAMIN D 25-OH VIT D 28 ng/mL (.); *VITAMIN D 25-OH, D2 <1.0 ng/mL (.); *VITAMIN D 25-OH, D3 27 ng/mL (.)
[2023-08-23 14:47] LABS: HIV-1 p24 ANTIGEN NON REACTIVE (NONREACTIVE); HIV-1/2 ANTIBODY NON REACTIVE (NONREACTIVE)
== END 2023-08-17 23:59 | disposition home or self-care (01) ==
LOC: LAB 07:28
PROVIDERS: ATTEND Legal Medicine
DX: Z00.00 Encounter for general adult medical examination without abnormal findings (principal); E78.00 Pure hypercholesterolemia, unspecified; R53.1 Weakness; E11.9 Type 2 diabetes mellitus without complications; D64.9 Anemia, unspecified; E03.9 Hypothyroidism, unspecified; I10 Essential (primary) hypertension; E55.9 Vitamin D deficiency, unspecified
CPT/HCPCS: 36415; 82670; 82746; 83001; 83002; 83550; 84146; 84403; 84443; 85025; 86706; 87806

== ENCOUNTER 2023-08-19 06:59 | Outpatient (CLI) | payer BC, OTHER | END 2023-08-19 23:59 | disposition home or self-care (01) | LOC: RAD 06:59 | PROVIDERS: ATTEND Legal Medicine | DX: R91.8 Other nonspecific abnormal finding of lung field (principal) | CPT/HCPCS: 71250; 71260 ==

== ENCOUNTER 2024-02-10 07:52 | Outpatient (CLI) | payer BC, OTHER ==
[2024-02-10 08:27] LABS: BASOPHILS # (AUTO) 0.1 K/UL (0.0-0.2); BASOPHILS % (AUTO) 2.2 % (0.0-2.0); EOSINOPHILS # (AUTO) 0.3 K/uL (0.0-0.7); EOSINOPHILS % (AUTO) 5.1 % (0.0-7.0); HEMATOCRIT 36.5 % (31.2-41.9); HEMOGLOBIN 12.1 g/dL (10.9-14.3); LYMPHOCYTES # (AUTO) 2.6 K/uL (0.8-4.8); LYMPHOCYTES % (AUTO) 43.8 % (20.5-51.5); MEAN CORPUSCULAR HEMOGLOBIN 28.3 uug (24.7-32.8); MEAN CORPUSCULAR HGB CONC 33 g/dL (32.3-35.6); MEAN CORPUSCULAR VOLUME 85.8 fL (75.5-95.3); MONOCYTES # (AUTO) 0.5 K/uL (0.1-1.30); MONOCYTES % (AUTO) 8.3 % (0.0-11.0); NEUTROPHILS # (AUTO) 2.4 K/uL (1.8-8.9); NEUTROPHILS % (AUTO) 40.6 % (38.5-71.5); PLATELET COUNT (AUTO) 323 K/uL (179-408); RED BLOOD CELL COUNT(AUTO) 4.26 MIL/uL (3.63-4.92); RED CELL DISTRIBUTION WIDTH 13.6 % (12.3-17.7)
[2024-02-10 08:39] LABS: *BILIRUBIN,URIN NEGATIVE (NEGATIVE); *CLARITY,URINE CLEAR (CLEAR); *COLOR,URINE YELLOW (YELLOW); *KETONES,URINE NEGATIVE (NEGATIVE); *PROTEIN,URINE NEGATIVE (NEGATIVE); *UROBILINOGEN,URINE 0.2 E.U./dl (NORMAL); LEUKOCYTE ESTERASE ,URINE NEGATIVE (NEGATIVE); NITRITE, URINE NEGATIVE (NEGATIVE); PH,URINE 5.5 (5.0-8.0); UGLUCOSE NEGATIVE (NEGATIVE)
[2024-02-10 08:43] LABS: *BLOOD, URINE TRACE (NEGATIVE)
[2024-02-10 08:45] LABS: ALBUMIN 4.2 g/dL (3.4-5.0); BILIRUBIN,TOTAL 0.4 mg/dL (0.2-1.0); CALCIUM 8.9 mg/dL (8.5-10.1); CREATININE 0.8 mg/dL (0.6-1.3); POTASSIUM 3.9 mmol/L (3.5-5.1); TOTAL PROTEIN, SERUM 7.9 g/dL (6.4-8.2)
[2024-02-10 08:46] LABS: DIFFERENTIAL COMMENT 1
[2024-02-10 15:21] LABS: BACTERIA,URINE FEW /HPF (NONE SEEN); RBC,URINE 0-3 /HPF (0-3); SQUAMOUS EPITHELIAL CELL,UR FEW /HPF (NONE SEEN); URINE AMORPHOUS URATE MANY /HPF; WBC,URINE 0-3 /HPF (0-3)
== END 2024-02-10 23:59 | disposition home or self-care (01) ==
LOC: LAB 07:52
PROVIDERS: ATTEND Internal Medicine Gastroenterology
DX: Z01.818 Encounter for other preprocedural examination (principal); Z12.11 Encounter for screening for malignant neoplasm of colon
CPT/HCPCS: 36415; 71046; 85025; 85730

== ENCOUNTER 2024-08-10 07:39 | Day surgery (SDC) | payer BC, OTHER ==
[2024-08-10] MEDS ORDERED: PROPOFOL 200 MG/20 ML BOTTLE ONE (09:00)
[2024-08-10 11:25] VITALS: TEMP 97.4
== END 2024-08-10 11:50 | disposition home or self-care (01) ==
LOC: DS 07:39
PROVIDERS: ATTEND Internal Medicine Gastroenterology
DX: Z12.11 Encounter for screening for malignant neoplasm of colon (principal); K63.89 Other specified diseases of intestine; K64.8 Other hemorrhoids; K62.6 Ulcer of anus and rectum; Z90.710 Acquired absence of both cervix and uterus; Z98.890 Other specified postprocedural states; Z79.899 Other long term (current) drug therapy; Z87.440 Personal history of urinary (tract) infections
CPT/HCPCS: A4663; J3490; J7120